=== PATIENT | female | born 1975 | race Caucasian/White ===

== ENCOUNTER 2017-07-31 06:59 | Inpatient (IN) ==
[2017-07-31] MEDS ORDERED: 0.9 % Sodium Chloride 1,000 ML IVC ONE ×2 (07:19→21:24)
--- NOTE | 2017-07-31 07:19 | Emergency Department Note ---
Disposition Clinical Impression: Overdose, Sepsis Disposition: Admitted As Inpatient Condition: Good Referrals: NONE,PCP [Primary Care Provider] - Forms: ED Satisfaction Letter General Adult HPI - General Chief complaint: ED Overdose Stated complaint: overdose Time Seen by Provider: 07/31/17 07:04 Source: patient, EMS Limitations: altered mental status Nursing Notes Reviewed: Yes Vital Signs Reviewed: Yes - History of Present Illness Pain Scale: 3 - Related Data Home Medications Medication Instructions Recorded Confirmed Unable To Obtain [Unable to Obtain] 07/31/17 07/31/17 Allergies Allergy/AdvReac Type Severity Reaction Status Date / Time iodine Allergy Hives Verified 07/07/16 16:08 Past Medical History - Past Medical History Medical history: Reports: asthma, GERD, hepatitis, kidney stones, migraine Surgical history: Reports: , hysterectomy (partial) Psychiatric history: Reports: depression 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 - Social History Smoking Status: Current some day smoker Smokeless Tobacco Status: No Alcohol use: Reports: none Drug use: Reports: marijuana Physical Exam - General Limitations: altered mental status General appearance: alert Course Vital Signs Temperature 101.1 F H 07/31/17 07:03 Pulse Rate 116 07/31/17 07:03 Respiratory Rate 22 07/31/17 07:03 Blood Pressure 107/72 07/31/17 07:03 O2 Sat by Pulse Oximetry 94 07/31/17 07:03 Temperature 99.0 F 07/31/17 12:20 Pulse Rate 92 07/31/17 12:20 Respiratory Rate 20 07/31/17 12:20 Blood Pressure 99/65 07/31/17 12:20 O2 Sat by Pulse Oximetry 95 07/31/17 12:20 Oxygen Delivery Oxygen Delivery Room Air Medical Decision Making - Lab Data Result diagrams: 07/31/17 07:45 07/31/17 07:45 Lab Results 07/31/17 07/31/17 07/31/17 Range/Units 07:45 07:45 07:45 WBC 7.6 (4.3-11.1) K/mcL RBC 4.26 (3.82-4.97) M/mcL Hgb 12.1 (11.5-15.4) g/dL Hct 37.5 (35.3-44.9) % MCV 88.0 (83.0-100.0) fL MCH 28.4 (28.0-33.3) pg MCHC 32.3 (31.6-35.5) g/dL RDW 15.3 H (11.5-14.5) % Plt Count 198 (140-400) K/mcL MPV 10.4 (9.4-12.4) fL Immature Gran % 0.7 (0-4) % Seg Neutrophils % 91.5 % Lymphocytes % 6.9 % Monocytes % 0.5 % Eosinophils % 0.0 % Basophils % 0.4 % Neutrophils # 6.9 (1.6-8.9) K/mcL Lymphocytes # 0.5 L (0.6-4.6) K/mcL Monocytes # 0.0 (0.0-1.3) K/mcL Eosinophils # 0.0 (0.0-0.6) K/mcL Basophils # 0.0 (0.0-0.2) K/mcL PT (9.4-12.1) Seconds INR Sodium 138 (136-145) mEq/L Potassium 3.4 L (3.5-5.1) mEq/L Chloride 102 (98-107) mEq/L Carbon Dioxide 28 (23-29) mEq/L BUN 16 (6-20) mg/dL Creatinine 0.84 (0.60-1.20) mg/dL Est GFR ( Amer) > 60 (> 60) Est GFR (Non-Af Amer) > 60 (> 60) BUN/Creatinine Ratio 19 (6-26) Glucose 80 (70-105) mg/dL Calculated Osmolality 286 (280-300) Lactic Acid (0.5-2.2) mmol/L Calcium 8.9 (8.6-10.3) mg/dL Total Bilirubin 1.1 H (0.3-1.0) mg/dL Direct Bilirubin 0.6 H (0.0-0.2) mg/dL Indirect Bilirubin 0.5 (0.0-1.2) mg/dL AST 43 H (13-39) Units/L ALT 36 (7-52) Units/L Alkaline Phosphatase 102 (34-104) Units/L Ammonia 37 (16-53) mcmol/L B-Natriuretic Peptide (Less than 100) pg/mL Serum Total Protein 6.4 (6.4-8.9) g/dL Albumin 3.0 L (3.5-5.7) g/dL Globulin 3.4 (2.4-3.5) g/dL Albumin/Globulin Ratio 0.9 L (1.1-2.2) Salicylates < 2.5 L (15.0-30.0) mg/dL Acetaminophen < 10 L (10-20) mcg/mL Ethyl Alcohol < 10 (Less than 10) mg/dL 07/31/17 07/31/17 07/31/17 Range/Units 07:45 07:45 08:33 WBC (4.3-11.1) K/mcL RBC (3.82-4.97) M/mcL Hgb (11.5-15.4) g/dL Hct (35.3-44.9) % MCV (83.0-100.0) fL MCH (28.0-33.3) pg MCHC (31.6-35.5) g/dL RDW (11.5-14.5) % Plt Count (140-400) K/mcL MPV (9.4-12.4) fL Immature Gran % (0-4) % Seg Neutrophils % % Lymphocytes % % Monocytes % % Eosinophils % % Basophils % % Neutrophils # (1.6-8.9) K/mcL Lymphocytes # (0.6-4.6) K/mcL Monocytes # (0.0-1.3) K/mcL Eosinophils # (0.0-0.6) K/mcL Basophils # (0.0-0.2) K/mcL PT 11.7 (9.4-12.1) Seconds INR 1.1 Sodium (136-145) mEq/L Potassium (3.5-5.1) mEq/L Chloride (98-107) mEq/L Carbon Dioxide (23-29) mEq/L BUN (6-20) mg/dL Creatinine (0.60-1.20) mg/dL Est GFR ( Amer) (> 60) Est GFR (Non-Af Amer) (> 60) BUN/Creatinine Ratio (6-26) Glucose (70-105) mg/dL Calculated Osmolality (280-300) Lactic Acid 1.5 (0.5-2.2) mmol/L Calcium (8.6-10.3) mg/dL Total Bilirubin (0.3-1.0) mg/dL Direct Bilirubin (0.0-0.2) mg/dL Indirect Bilirubin (0.0-1.2) mg/dL AST (13-39) Units/L ALT (7-52) Units/L Alkaline Phosphatase (34-104) Units/L Ammonia (16-53) mcmol/L B-Natriuretic Peptide 49 (Less than 100) pg/mL Serum Total Protein (6.4-8.9) g/dL Albumin (3.5-5.7) g/dL Globulin (2.4-3.5) g/dL Albumin/Globulin Ratio (1.1-2.2) Salicylates (15.0-30.0) mg/dL Acetaminophen (10-20) mcg/mL Ethyl Alcohol (Less than 10) mg/dL Critical Care Time Critical Care Time: Yes Total Critical Care Time: 35 Attestation: Critical care performed: Time is exclusive of separately billable procedures. Time includes: direct patient care, patient reassessment, coordination of patient care, interpretation of data (laboratory data, radiology data, and respiratory data), review of patient's medical records, medical consultation and documentation of patient care. Procedures included in critical care time: Procedures excluded from critical care time: Attestation Statement - Attestation Attestation: I examined this patient and my medical decision-making was reviewed with the Resident Physician. I agree with the documented findings, disposition and treatment plan as described except to the extent set forth below. Patient to the ED with altered mental status. Patient states that she shot up drugs thinking it was heroin. Complaining of leg swelling. Abdominal swelling. Patient has a history of IV drug use and hepatitis C. On exam she is anxious. Crying. Yelling out. Abdominal distention. 4+ pitting edema in the legs. Plan. Patient afebrile. Septic workup. CT abdomen. CT head. Likely admission. No septic source found. Patient refusing straight catheter and urinated all over herself. Normal white count. Admitted to hospitalist.
--- NOTE | 2017-07-31 07:24 | Emergency Department Note ---
Disposition Clinical Impression: Overdose Qualifiers: Encounter type: initial encounter Injury intent: undetermined intent Qualified Code(s): T50.904A - Poisoning by unspecified drugs, medicaments and biological substances, undetermined, initial encounter Sepsis Qualifiers: Sepsis type: sepsis due to unspecified organism Qualified Code(s): A41.9 - Sepsis, unspecified organism Disposition: Admitted As Inpatient Condition: Good Referrals: NONE,PCP [Primary Care Provider] - Forms: ED Satisfaction Letter General Adult HPI - General Chief complaint: ED Overdose Stated complaint: overdose Time Seen by Provider: 07/31/17 07:04 Source: patient, EMS Limitations: altered mental status Nursing Notes Reviewed: Yes Vital Signs Reviewed: Yes - History of Present Illness HPI Narrative: Patient presents emergency department by EMS after concern for overdose. EMS reports the patient states she crushed up a unknown tablet and injected it. She states that she is recovering addict. Patient states that she is now having second pain in her lower extremities as well as swelling. Patient states that she has pain with trying to walk secondary to the pressure feet. Patient states swelling to both the legs as well as abdomen. Patient has abdominal tenderness that is generalized. Patient has not had vomiting or diarrhea. On exam patient is febrile and tachycardic. Pain Scale: 3 - Related Data Home Medications Medication Instructions Recorded Confirmed Unable To Obtain [Unable to Obtain] 07/31/17 07/31/17 Allergies Allergy/AdvReac Type Severity Reaction Status Date / Time iodine Allergy Hives Verified 07/07/16 16:08 Review of Systems: Somewhat limited secondary to mental status as she is agitated. ROS positive for: Abdominal pain, swelling in the legs, pain in the legs, aggitation. Negative for: Chest pain and shortness of breath. 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 no guarding, rebound, or tenderness to percussion Extremities: Pitting edema to the lower extremities through the calf. +2. Skin: No rash, normal skin tone Neuro: Awake and alert, agitated, moving all extremities. - General Limitations: altered mental status General appearance: alert Course - Reevaluation(s) Reevaluation #1: Patient reevaluated and continues complain of abdominal pain as well as swelling in her lower extremities. Patient came in tachycardic and febrile. She states she has had fevers and chills for the last month. She has a history of septic elbow. History of IV drug use. Concern for sepsis. CT scan with THE findings in the right upper quadrant. Ultrasound ordered. Not septic for acute cholecystitis. Empiric antibiotics given. Patient will be admitted for further observation. - Consultations Consultation #1: Discussed with hospitalist. Patient accepted for admission. Vital Signs Temperature 101.1 F H 07/31/17 07:03 Pulse Rate 116 07/31/17 07:03 Respiratory Rate 22 07/31/17 07:03 Blood Pressure 107/72 07/31/17 07:03 O2 Sat by Pulse Oximetry 94 07/31/17 07:03 Temperature 99.0 F 07/31/17 12:20 Pulse Rate 92 07/31/17 12:20 Respiratory Rate 20 07/31/17 12:20 Blood Pressure 99/65 07/31/17 12:20 O2 Sat by Pulse Oximetry 95 07/31/17 12:20 Oxygen Delivery Oxygen Delivery Room Air Medical Decision Making - Lab Data Result diagrams: 07/31/17 07:45 07/31/17 07:45 Lab Results 07/31/17 07/31/17 07/31/17 Range/Units 07:45 07:45 07:45 WBC 7.6 (4.3-11.1) K/mcL RBC 4.26 (3.82-4.97) M/mcL Hgb 12.1 (11.5-15.4) g/dL Hct 37.5 (35.3-44.9) % MCV 88.0 (83.0-100.0) fL MCH 28.4 (28.0-33.3) pg MCHC 32.3 (31.6-35.5) g/dL RDW 15.3 H (11.5-14.5) % Plt Count 198 (140-400) K/mcL MPV 10.4 (9.4-12.4) fL Immature Gran % 0.7 (0-4) % Seg Neutrophils % 91.5 % Lymphocytes % 6.9 % Monocytes % 0.5 % Eosinophils % 0.0 % Basophils % 0.4 % Neutrophils # 6.9 (1.6-8.9) K/mcL Lymphocytes # 0.5 L (0.6-4.6) K/mcL Monocytes # 0.0 (0.0-1.3) K/mcL Eosinophils # 0.0 (0.0-0.6) K/mcL Basophils # 0.0 (0.0-0.2) K/mcL PT (9.4-12.1) Seconds INR Sodium 138 (136-145) mEq/L Potassium 3.4 L (3.5-5.1) mEq/L Chloride 102 (98-107) mEq/L Carbon Dioxide 28 (23-29) mEq/L BUN 16 (6-20) mg/dL Creatinine 0.84 (0.60-1.20) mg/dL Est GFR ( Amer) > 60 (> 60) Est GFR (Non-Af Amer) > 60 (> 60) BUN/Creatinine Ratio 19 (6-26) Glucose 80 (70-105) mg/dL Calculated Osmolality 286 (280-300) Lactic Acid (0.5-2.2) mmol/L Calcium 8.9 (8.6-10.3) mg/dL Total Bilirubin 1.1 H (0.3-1.0) mg/dL Direct Bilirubin 0.6 H (0.0-0.2) mg/dL Indirect Bilirubin 0.5 (0.0-1.2) mg/dL AST 43 H (13-39) Units/L ALT 36 (7-52) Units/L Alkaline Phosphatase 102 (34-104) Units/L Ammonia 37 (16-53) mcmol/L B-Natriuretic Peptide (Less than 100) pg/mL Serum Total Protein 6.4 (6.4-8.9) g/dL Albumin 3.0 L (3.5-5.7) g/dL Globulin 3.4 (2.4-3.5) g/dL Albumin/Globulin Ratio 0.9 L (1.1-2.2) Salicylates < 2.5 L (15.0-30.0) mg/dL Acetaminophen < 10 L (10-20) mcg/mL Ethyl Alcohol < 10 (Less than 10) mg/dL 07/31/17 07/31/17 07/31/17 Range/Units 07:45 07:45 08:33 WBC (4.3-11.1) K/mcL RBC (3.82-4.97) M/mcL Hgb (11.5-15.4) g/dL Hct (35.3-44.9) % MCV (83.0-100.0) fL MCH (28.0-33.3) pg MCHC (31.6-35.5) g/dL RDW (11.5-14.5) % Plt Count (140-400) K/mcL MPV (9.4-12.4) fL Immature Gran % (0-4) % Seg Neutrophils % % Lymphocytes % % Monocytes % % Eosinophils % % Basophils % % Neutrophils # (1.6-8.9) K/mcL Lymphocytes # (0.6-4.6) K/mcL Monocytes # (0.0-1.3) K/mcL Eosinophils # (0.0-0.6) K/mcL Basophils # (0.0-0.2) K/mcL PT 11.7 (9.4-12.1) Seconds INR 1.1 Sodium (136-145) mEq/L Potassium (3.5-5.1) mEq/L Chloride (98-107) mEq/L Carbon Dioxide (23-29) mEq/L BUN (6-20) mg/dL Creatinine (0.60-1.20) mg/dL Est GFR ( Amer) (> 60) Est GFR (Non-Af Amer) (> 60) BUN/Creatinine Ratio (6-26) Glucose (70-105) mg/dL Calculated Osmolality (280-300) Lactic Acid 1.5 (0.5-2.2) mmol/L Calcium (8.6-10.3) mg/dL Total Bilirubin (0.3-1.0) mg/dL Direct Bilirubin (0.0-0.2) mg/dL Indirect Bilirubin (0.0-1.2) mg/dL AST (13-39) Units/L ALT (7-52) Units/L Alkaline Phosphatase (34-104) Units/L Ammonia (16-53) mcmol/L B-Natriuretic Peptide 49 (Less than 100) pg/mL Serum Total Protein (6.4-8.9) g/dL Albumin (3.5-5.7) g/dL Globulin (2.4-3.5) g/dL Albumin/Globulin Ratio (1.1-2.2) Salicylates (15.0-30.0) mg/dL Acetaminophen (10-20) mcg/mL Ethyl Alcohol (Less than 10) mg/dL
[2017-07-31 08:06] LABS: Basophils % 0.4 %; Hematocrit 37.5 % (35.3-44.9); Hemoglobin 12.1 g/dL (11.5-15.4); Immature Granulocytes % 0.7 % (0-4); Lymphocytes # 0.5 K/mcL (0.6-4.6); Lymphocytes % 6.9 %; Mean Corpuscular HGB Conc 32.3 g/dL (31.6-35.5); Mean Corpuscular Hemoglobin 28.4 pg (28.0-33.3); Mean Platelet Volume 10.4 fL (9.4-12.4); Monocytes % 0.5 %; Neutrophils # 6.9 K/mcL (1.6-8.9); Platelet Count 198 K/mcL (140-400); Red Blood Count 4.26 M/mcL (3.82-4.97); Red Cell Distribution Width 15.3 % (11.5-14.5); Segmented Neutrophils % 91.5 %
[2017-07-31 08:19] LABS: INR 1.1; Prothrombin Time 11.7 Seconds (9.4-12.1)
[2017-07-31 08:22] LABS: Acetaminophen < 10 mcg/mL (10-20); Alanine Aminotransferase 36 Units/L (7-52); Albumin/Globulin Ratio 0.9 (1.1-2.2); Alkaline Phosphatase 102 Units/L (34-104); Aspartate Amino Transferase 43 Units/L (13-39); BUN/Creatinine Ratio 19 (6-26); Bilirubin,Direct 0.6 mg/dL (0.0-0.2); Bilirubin,Indirect 0.5 mg/dL (0.0-1.2); Bilirubin,Total 1.1 mg/dL (0.3-1.0); Blood Urea Nitrogen 16 mg/dL (6-20); Calcium 8.9 mg/dL (8.6-10.3); Carbon Dioxide 28 mEq/L (23-29); Chloride 102 mEq/L (98-107); Ethanol < 10 mg/dL (Less than 10); Globulin 3.4 g/dL (2.4-3.5); Glucose 80 mg/dL (70-105); Osmolality,Calculated 286 (280-300); Potassium 3.4 mEq/L (3.5-5.1); Salicylate < 2.5 mg/dL (15.0-30.0); Sodium 138 mEq/L (136-145); Total Protein 6.4 g/dL (6.4-8.9); eGFR For African Americans > 60 (> 60); eGFR For Non-African Americans > 60 (> 60)
[2017-07-31] MEDS ORDERED: Piperacillin/Tazobactam 3.375 GM in 0.9 % Sodium Chloride Mini Bag 100 ML IVPB ONE (08:46)
--- NOTE | 2017-07-31 12:42 | Internal Med History&Physical ---
Date of Encounter: 08/01/17 Time of Encounter: 12:42 Internal Medicine - H&P: HPI Plans for Post Hospital Care: Transfer Inp Rehab Fac History of present illness: Ms. Pepper is a 42 year old female who as per her is a recovering addict and presents to emergency department by EMS after concern for overdose of unknown tablet that she crushed and injected it. She also C/O abdominal tenderness associated with lower extremities pain as well as swelling. She was evaluated by the Er staff and was found to be febrile and tachycardic. She has a history of septic elbow and she was given that she is febrile and tachycardiac, she was started Empiric antibiotics for a concerns of sepsis. Patient will be admitted for further observation. Past Med Surg Social Fam HX - Past Medical History Medical history: asthma, GERD, hepatitis, kidney stones, migraine Psychiatric history: depression - Past Surgical History Surgical History: , hysterectomy (partial) - Social History Smoking Status: Current some day smoker Smokeless Tobacco Status: No Alcohol use: none Drug use: marijuana - Family History Mother Hx Family Cardiac Disorders: Yes (HTN) Hx Family Respiratory Disorders: No Hx Family Cancer: Yes (Stomach, colon, brain stem) Hx Family GI Disorders: No Hx Family Endocrine Disorder: Yes (DM) Hx Family Neuromuscular Disorders: No Hx Family Neurologic Disorders: No Hx Family HEENT Disorders: No Hx Family Autoimmune Disorders: No Father Hx Family Cardiac Disorders: Yes (HTN) Hx Family Respiratory Disorders: Yes (Asthma) Hx Family Cancer: Yes (Skin) Hx Family GI Disorders: No Hx Family Endocrine Disorder: Yes (DM) Hx Family Neuromuscular Disorders: No Hx Family Neurologic Disorders: No Hx Family HEENT Disorders: No Hx Family Autoimmune Disorders: No Internal Medicine - H&P: Meds Gabapentin [Neurontin] 800 mg PO BID 08/01/17 [History] 3 Allergy/AdvReac Type Severity Reaction Status Date / Time iodine Allergy Hives Verified 07/07/16 16:08 ROS unobtainable: due to mental status All Systems PM: A 10-system review of systems was performed and is negative for pertinent findings except as documented above in the HPI. - Constitutional Vitals: Temp Pulse Resp BP Pulse Ox 99.0 F 92 20 99/65 95 07/31/17 12:20 07/31/17 12:20 07/31/17 12:20 07/31/17 12:20 07/31/17 12:20 General appearance: Present: A&O X 0 - Head Head exam: Present: atraumatic, normocephalic - Eye Eye exam: Present: PERRL, conjuntiva pink, sclera anicteric Pupils: Present: PERRL - Respiratory Respiratory exam: Present: CTAB. Absent: accessory muscle use, rales, rhonchi, wheezes - Cardiovascular Cardiovascular exam: Present: RRR, +S1, +S2. Absent: diastolic murmur, gallop, rubs, systolic murmur - GI/Abdominal GI/Abdominal exam: Present: normal bowel sounds, soft, no peritoneal signs. Absent: distended, tenderness - Extremities Exam Extremities exam: Present: pedal edema, warm, radial pulses palpable and symmetrical. Absent: calf tenderness, cyanotic Internal Med - H&P Results - Labs CBC & Chem 7: 08/01/17 01:32 08/01/17 01:32 - Assessment and plan (1) Overdose Current Visit: Yes Status: Acute Assessment and plan: The patient is recovering drug addict and she is with a history of amphetamine and heroin abuse, urine drug test was obtained and bending, she is hemodynamically stable however she is altered, we will continue monitoring and further management as per drug urine screen test Qualifiers: Encounter type: initial encounter Injury intent: undetermined intent Qualified Code(s): T50.904A - Poisoning by unspecified drugs, medicaments and biological substances, undetermined, initial encounter (2) Sepsis Current Visit: Yes Status: Acute Assessment and plan: There is no significant leukocytic count , however the patient is tachycardic and febrile , she reported fever and chills for the last 1 more month and she has a history of septic elbow. The patient was started on ABs and cultures were obtained and are pending Qualifiers: Sepsis type: sepsis due to unspecified organism Qualified Code(s): A41.9 - Sepsis, unspecified organism (3) Hypokalemia Current Visit: Yes Status: Acute Assessment and plan: Mild, we will repeat K level and replace. (4) DVT prophylaxis Current Visit: No Status: Acute Assessment and plan: We will start the patient on anticoagulation with heparin also we will place SCDs (5) Edema Current Visit: Yes Status: Acute Assessment and plan: Most likely nutritional given low albumin, obtain prealbumin level. The patient has no history of CHF, liver disease or heart disease. - Time Spent With Patient Total time spent is greater than 50% in coordination of care (as documented) at patient's floor/unit and/or counseling patient:
[2017-07-31] MEDS ORDERED: Naloxone 0.4 MG/ML INJ IVP PRN (13:21)
[2017-07-31] MEDS ORDERED: Acetaminophen 325 MG TABLET PO PRN (13:21)
[2017-07-31] MEDS: 0.9 % Sodium Chloride 1,000 ML IVC SCH (16:05)
[2017-07-31 18:10] LABS: Bilirubin,Urine Negative (Negative); Blood,Urine Negative (Negative); Clarity,Urine Clear (Clear); Color,Urine Yellow (Yellow); Glucose,Urine (UA) Normal (Normal); Ketones,Urine Negative (Negative); Leukocyte Esterase,Urine Negative (Negative); Nitrite,Urine Negative (Negative); Protein,Urine Negative (Neg-Trace); Specific Gravity,Urine 1.007 (1.010-1.025); Urobilinogen,Urine Normal (Normal)
[2017-07-31 18:19] LABS: Amphetamine Screen,Urine Negative ng/mL (Cutoff=1000); Barbiturate Screen,Urine Negative ng/mL (Cutoff=200); Benzodiazepines Screen,Urine Negative ng/mL (Cutoff=200); Cannabinoid Screen,Urine Positive ng/mL (Cutoff = 50); Cocaine Screen,Urine Positive ng/mL (Cutoff= 300); Opiate Screen,Urine Positive ng/mL (Cutoff=300); Phencyclidine Screen,Urine Negative ng/mL (Cutoff=25)
[2017-07-31] MEDS: Piperacillin/Tazobactam 3.375 GM in 0.9 % Sodium Chloride Mini Bag 100 ML IVPB SCH (19:41)
[2017-07-31] MEDS: *HR* Heparin 5,000 UNIT/ML VIAL SQ SCH (19:42)
[2017-07-31 20:19] LABS: Hematocrit 36.3 % (35.3-44.9); Mean Corpuscular HGB Conc 33.1 g/dL (31.6-35.5); Mean Corpuscular Hemoglobin 29.3 pg (28.0-33.3); Mean Corpuscular Volume 88.5 fL (83.0-100.0); Mean Platelet Volume 10.3 fL (9.4-12.4); Platelet Count 209 K/mcL (140-400); Red Cell Distribution Width 15.6 % (11.5-14.5)
[2017-07-31 20:24] LABS: INR 1.1
[2017-07-31 20:27] LABS: Activated Partial Thrombo Time 27.5 Seconds (26.0-36.0)
[2017-07-31 20:39] LABS: Alanine Aminotransferase 35 Units/L (7-52); Albumin 2.9 g/dL (3.5-5.7); Albumin/Globulin Ratio 0.9 (1.1-2.2); Alkaline Phosphatase 64 Units/L (34-104); Aspartate Amino Transferase 39 Units/L (13-39); BUN/Creatinine Ratio 15 (6-26); Bilirubin,Direct 0.2 mg/dL (0.0-0.2); Bilirubin,Indirect 0.3 mg/dL (0.0-1.2); Bilirubin,Total 0.5 mg/dL (0.3-1.0); Blood Urea Nitrogen 14 mg/dL (6-20); Calcium 8.4 mg/dL (8.6-10.3); Carbon Dioxide 24 mEq/L (23-29); Chloride 107 mEq/L (98-107); Globulin 3.4 g/dL (2.4-3.5); Glucose 174 mg/dL (70-105); Osmolality,Calculated 295 (280-300); Potassium 3.3 mEq/L (3.5-5.1); Sodium 140 mEq/L (136-145); Total Protein 6.3 g/dL (6.4-8.9); eGFR For African Americans > 60 (> 60); eGFR For Non-African Americans > 60 (> 60)
[2017-07-31 20:41] LABS: Lymphocytes # 2.6 K/mcL (0.6-4.6); Neutrophils # 23.1 K/mcL (1.6-8.9); Platelet Estimate Normal (Normal)
[2017-08-01 01:47] LABS: Basophils # 0.1 K/mcL (0.0-0.2); Basophils % 0.3 %; Hematocrit 31.7 % (35.3-44.9); Hemoglobin 10.2 g/dL (11.5-15.4); Immature Granulocytes % 0.5 % (0-4); Lymphocytes # 2.5 K/mcL (0.6-4.6); Mean Corpuscular HGB Conc 32.2 g/dL (31.6-35.5); Mean Corpuscular Hemoglobin 28.3 pg (28.0-33.3); Mean Corpuscular Volume 87.8 fL (83.0-100.0); Mean Platelet Volume 10.4 fL (9.4-12.4); Monocytes # 1.2 K/mcL (0.0-1.3); Monocytes % 5.5 %; Neutrophils # 18.4 K/mcL (1.6-8.9); Platelet Count 196 K/mcL (140-400); Red Blood Count 3.61 M/mcL (3.82-4.97); Red Cell Distribution Width 15.8 % (11.5-14.5); Segmented Neutrophils % 82.7 %
[2017-08-01 01:51] LABS: INR 1.1; Prothrombin Time 12.1 Seconds (9.4-12.1)
[2017-08-01 02:06] LABS: Alanine Aminotransferase 28 Units/L (7-52); Albumin 2.5 g/dL (3.5-5.7); Albumin/Globulin Ratio 0.8 (1.1-2.2); Alkaline Phosphatase 59 Units/L (34-104); Aspartate Amino Transferase 30 Units/L (13-39); BUN/Creatinine Ratio 19 (6-26); Bilirubin,Total 0.4 mg/dL (0.3-1.0); Blood Urea Nitrogen 15 mg/dL (6-20); Calcium 7.9 mg/dL (8.6-10.3); Carbon Dioxide 26 mEq/L (23-29); Chloride 111 mEq/L (98-107); Chol/HDL Ratio 2.4 (0-4.9); Cholesterol 91 mg/dL (< 200); Glucose 136 mg/dL (70-105); HDL Cholesterol 38 mg/dL (40-59); LDL Cholesterol,Calculated 42 mg/dL (0-99); Magnesium 1.7 mg/dL (1.6-2.6); Osmolality,Calculated 293 (280-300); Phosphorous 2.5 mg/dL (2.7-4.5); Potassium 3.7 mEq/L (3.5-5.1); Sodium 140 mEq/L (136-145); Total Protein 5.5 g/dL (6.4-8.9); Triglycerides 55 mg/dL (< 150); eGFR For African Americans > 60 (> 60); eGFR For Non-African Americans > 60 (> 60)
[2017-08-01] MEDS: Piperacillin/Tazobactam 3.375 GM in 0.9 % Sodium Chloride Mini Bag 100 ML IVPB SCH ×2 (03:38→10:29)
[2017-08-01] MEDS: *HR* Heparin 5,000 UNIT/ML VIAL SQ SCH (06:10)
[2017-08-01] MEDS ORDERED: *HR* LORazepam 2 MG/ML VIAL IVP PRN (10:12)
[2017-08-01] MEDS: 0.9 % Sodium Chloride 1,000 ML IVC SCH (10:28)
--- NOTE | 2017-08-01 11:36 | Internal Med Progress Note ---
Date of Encounter: 08/01/17 Time of Encounter: 11:34 - Assessment and plan (1) Overdose Current Visit: Yes Status: Acute Assessment and plan: Overdose of suspected crack cocaine Patient unclear of the drug she injected; reports that he did not feel the same as prior injections which is why she came to the hospital Patient is a recovering addict and has had a recent 5-6 week stay at the [place] [facility] History of amphetamine, heroin, opiate and marijuana abuse UDS positive for opiates, cocaine and marijuana Patient reports that this was not intentional, denies any suicidal/homicidal ideation, denies any auditory/visual hallucinations, no tremors present, patient alert and participating in exam. She does appear to be mildly anxious and is agitated. Multiple occasions she has threatened to sign out AGAINST MEDICAL ADVICE. She was noted to have multiple people enter and exit her room. She has been informed that she would need to remain with her door open so that we can closely monitor her situation given her reason for admission. Continue to closely monitor for changes in mental status Remain on telemetry Closely monitor vital status Lorazepam 0.5 mg IVP when necessary for anxiety Continue antiemetics CBC and BMP in the morning WBC continues to improve and patient condition continues to stabilize consider discontinuing antibiotics in the a.m. also, as long as blood cultures remain with no growth Qualifiers: Encounter type: initial encounter Injury intent: undetermined intent Qualified Code(s): T50.904A - Poisoning by unspecified drugs, medicaments and biological substances, undetermined, initial encounter (2) Sepsis Current Visit: Yes Status: Acute Assessment and plan: Patient presented with leukocytosis 25.7, WBC 22.2 today. Concern for sepsis however no obvious source. Leukocytosis could be reactionary in the setting of IV drug abuse with IVDU of crack cocaine. Lactic acid 5.0 on arrival, 1.7 today , afebrile, heart rate 82, respiratory rate stable at 16, blood pressure stable at 113/65 and 96% on room air. Unclear whether or not this is sepsis at this time, patient has history of septic elbow. Continue empiric antibiotic therapy-vancomycin and Zosyn Blood cultures preliminary no growth-continue to follow Qualifiers: Sepsis type: sepsis due to unspecified organism Qualified Code(s): A41.9 - Sepsis, unspecified organism (3) Hypokalemia Current Visit: Yes Status: Acute Assessment and plan: Resolved, check serum potassium in the morning (4) Edema Current Visit: Yes Status: Resolved Assessment and plan: Resolved, continue Sid stockings Qualifiers: Qualified Code(s): R60.9 - Edema, unspecified (5) DVT prophylaxis Current Visit: Yes Status: Acute Assessment and plan: We will start the patient on anticoagulation with heparin also we will place SCDs - Time Spent With Patient Total time spent is greater than 50% in coordination of care (as documented) at patient's floor/unit and/or counseling patient: Greater than 35 minutes - Subjective Interval history: Ms. Pepper is a 42 year old female who as per her is a recovering addict and presents to emergency department by EMS after concern for overdose of unknown tablet that she crushed and injected it. She also C/O abdominal tenderness associated with lower extremities pain as well as swelling. Patient reporting to me that she did not overdose but was concerned because she injected an unknown substance; this made her feel anxious so she called the squad to come to the hospital. Patient denies any suicidal/homicidal ideation, denies any auditory or visual hallucinations, denies any tremors. Continues to report mild abdominal tenderness and lower extremity pain, reports swelling is improving. - Constitutional Vitals: Temp Pulse Resp BP Pulse Ox 98.4 F 82 16 113/65 96 08/01/17 07:33 08/01/17 07:33 08/01/17 07:33 08/01/17 07:33 08/01/17 07:33 General appearance: Present: A&O X 3, no acute distress, answers questions appropriately - Head Head exam: Present: atraumatic, normocephalic - Eye Eye exam: Present: EOMI, PERRL, conjuntiva pink, sclera anicteric Pupils: Present: PERRL - Neck Neck exam general surgery: Present: supple, trachea midline. Absent: lymphadenopathy - Respiratory Respiratory exam: Present: CTAB. Absent: accessory muscle use, chest wall tenderness, decreased breath sounds, prolonged expiratory phase, rales, respiratory distress, rhonchi, wheezes, tachypnea - Cardiovascular Cardiovascular exam: Present: RRR, +S1, +S2. Absent: diastolic murmur, gallop, rubs, systolic murmur - GI/Abdominal GI/Abdominal exam: Present: normal bowel sounds, soft, no peritoneal signs. Absent: distended, tenderness - Extremities Exam Extremities exam: Present: normal capillary refill, normal inspection, warm, radial pulses palpable and symmetrical. Absent: calf tenderness, cyanotic, joint swelling, mottling, pedal edema, tenderness - Back Exam Back exam: Absent: CVA tenderness (L), CVA tenderness (R) - Neurological Exam Neurological exam: Present: alert, CN II-XII intact, oriented X3, no focal deficits. Absent: pronater drift, facial droop, speech deficit - Psychiatric Psychiatric exam: Present: agitated, anxious. Absent: depressed, homicidal ideation, manic, suicidal ideation - Skin Skin exam: Present: dry, intact Internal Medicine: Result - Labs CBC & Chem 7: 08/01/17 01:32 08/01/17 01:32 Labs: Short CBC 07/31/17 08/01/17 Range/Units 20:06 01:32 WBC 25.7 H D 22.2 H (4.3-11.1) K/mcL Hgb 12.0 10.2 L D (11.5-15.4) g/dL Hct 36.3 31.7 L (35.3-44.9) % Plt Count 209 196 (140-400) K/mcL Neutrophils # 23.1 H 18.4 H (1.6-8.9) K/mcL BMP 07/31/17 08/01/17 20:06 01:32 Sodium 140 140 Potassium 3.3 L 3.7 Chloride 107 111 H Carbon Dioxide 24 26 BUN 14 15 Creatinine 0.93 0.81 Glucose 174 H 136 H Calcium 8.4 L 7.9 L Cardiac Enzymes 07/31/17 08/01/17 Range/Units 20:06 01:32 Troponin I < 0.03 < 0.03 (< 0.04) ng/mL Liver Function 07/31/17 08/01/17 Range/Units 20:06 01:32 Total Bilirubin 0.5 0.4 (0.3-1.0) mg/dL Direct Bilirubin 0.2 (0.0-0.2) mg/dL AST 39 30 (13-39) Units/L ALT 35 28 (7-52) Units/L Alkaline Phosphatase 64 59 (34-104) Units/L Albumin 2.9 L 2.5 L (3.5-5.7) g/dL Urine 07/31/17 Range/Units 17:34 Urine Color Yellow (Yellow) Urine Clarity Clear (Clear) Urine pH 7.0 (5.0-8.0) pH Units Ur Specific Goldsmith 1.007 L (1.010-1.025) Urine Protein Negative (Neg-Trace) mg/dL Urine Glucose (UA) Normal (Normal) mg/dL - ABG Interpretation ABG results: PT/INR, D-dimer PT 12.1 Seconds (9.4-12.1) 08/01/17 01:32 - Impressions Impressions Chest X-Ray 07/31/17 07:16 IMPRESSION: No acute cardiopulmonary disease. D/ / 07/31/2017 08:28:55 Cosmo Fatima MD [facility] [place] Interpre[place] Provider: Cosmo Fatima MD - VTE Documentation of Mechanical Device: Graduated compression elastic hosiery Consult Discharge Plan - Plan Referrals: NONE,PCP [Primary Care Provider] -
[2017-08-01 11:42] VITALS: BP 110/66
--- NOTE | 2017-08-01 11:52 | Event Note ---
Date of Encounter: 08/01/17 Time of Encounter: 11:50 I was called to the bedside at the request of the patient reported that she is not sure she would like to stay for medical treatment any longer. She was informed that with recent drug overdose, drug abuse history and potential sepsis would not be safe for her to go home at this time. She was informed that she could benefit from further treatment and/or discharged to an outpatient treatment facility to help with her drug abuse. Additionally, she was informed that would be vital to continue to receive IV antibiotic therapy due to likely sepsis. She was informed that she was not medically stable for discharge and I would not recommend or complete a discharge. The patient reports that she would like to leave AGAINST MEDICAL ADVICE. She was informed on multiple occasions that she has the right to leave AGAINST MEDICAL ADVICE as she has no suicidal or homicidal ideation or intent for self-harm. She was informed that leaving AGAINST MEDICAL ADVICE in her current condition with sepsis and drug abuse history could result in . The patient has agreed to stay at this time but is still considering leaving AGAINST MEDICAL ADVICE. She continues to be agitated. She is receiving anxiolytics per IV push. We are vigilantly monitoring for signs and symptoms of withdrawal and treating withdrawal.
--- NOTE | 2017-08-01 16:24 | Event Note ---
Date of Encounter: 08/01/17 Time of Encounter: 15:00 Patient with overdose of crack cocaine and concern for sepsis with leukocytosis. Was being treated with empiric broad-spectrum antibiotics for concern for sepsis. No suicidal or homicidal ideation. Accidental overdose of crack cocaine via IV injection. Patient was becoming very agitated and anxious and requesting to leave. Patient was educated that we would not be within her best interest to leave as she likely has a septic infection. It was explained to her that she would need broad-spectrum antibiotics in order to resolve the infection and that should she leave and not receive antibiotic therapy she could decline of health and/or . Patient left AGAINST MEDICAL ADVICE after education. Patient confirmed that she understood risks and decided to leave AGAINST MEDICAL ADVICE anyway.
--- NOTE | 2017-08-02 14:22 | Electrocardiograph Report ---
[address] [address] Test Date: 2017-07-31 Pat Name: Shawnee Pepper Department: 103 Room: 3B33 Gender: F Store Receiving Specialist: : [id number] Requested By: Susanne See Order Number: [id number] Reading MD: Sherly Duque Measurements Intervals [place]cl[place] Rate: 111 P: 55 RI: 112 QRS: 61 QRSD: 80 T: 67 QT: 327 QTc: 392 Interpretive Statements SINUS TACHYCARDIA WITH SHORT RI INTERVAL POSSIBLE LEFT ATRIAL ENLARGEMENT [-0.1mV P WAVE IN V1/V2] MINIMAL ST DEPRESSION [0.025+ mV ST DEPRESSION] Electronically Signed On 08-02-2017 14:20:37 EDT by Sherly Duque
== END 2017-08-01 15:00 | disposition left against medical advice (07) | DRG 720 ==
LOC: 3BNU 06:59 → EMEROO 06:59 → 3BNU 12:43
PROVIDERS: ADMIT General Practice; ATTEND General Practice

== ENCOUNTER 2019-01-29 11:45 | Observation (INO) ==
[2019-01-29] MEDS ORDERED: *HR* LORazepam 2 MG/ML VIAL IVP ONE (11:54)
[2019-01-29] MEDS ORDERED: *HR* Midazolam HCl 2 MG/2 ML VIAL IVP ONE (12:18)
[2019-01-29] MEDS ORDERED: *HR* Ketamine 500 MG/5 ML MDV IVP ONE (12:30)
[2019-01-29] MEDS ORDERED: Ketamine *HR* 500 MG/10 ML MDV IVP ONE (12:32)
[2019-01-29] MEDS: 0.9 % Sodium Chloride 1,000 ML IVC SCH ×5 (12:53→18:37)
[2019-01-29 13:14] LABS: Bilirubin,Urine Negative (Negative); Blood,Urine Negative (Negative); Clarity,Urine Clear (Clear); Color,Urine Yellow (Yellow); Glucose,Urine (UA) Normal (Normal); Ketones,Urine Negative (Negative); Leukocyte Esterase,Urine Negative (Negative); Nitrite,Urine Negative (Negative); Protein,Urine Negative (Neg-Trace); Specific Gravity,Urine 1.011 (1.010-1.025); Urobilinogen,Urine Normal (Normal)
[2019-01-29 13:17] LABS: Basophils % 0.2 %; Hematocrit 39.2 % (35.3-44.9); Hemoglobin 12.3 g/dL (11.5-15.4); Immature Granulocytes % 0.6 % (0-4); Lymphocytes # 1.2 K/mcL (0.6-4.6); Lymphocytes % 17.9 %; Mean Corpuscular HGB Conc 31.4 g/dL (31.6-35.5); Mean Corpuscular Hemoglobin 27.6 pg (28.0-33.3); Mean Corpuscular Volume 87.9 fL (83.0-100.0); Mean Platelet Volume 9.8 fL (9.4-12.4); Monocytes # 0.1 K/mcL (0.0-1.3); Monocytes % 0.8 %; Neutrophils # 5.4 K/mcL (1.6-8.9); Platelet Count 309 K/mcL (140-400); Red Blood Count 4.46 M/mcL (3.82-4.97); Red Cell Distribution Width 16.2 % (11.5-14.5); Segmented Neutrophils % 80.5 %; White Blood Count 6.7 K/mcL (4.3-11.1)
[2019-01-29 13:36] LABS: BUN/Creatinine Ratio 33 (6-26); Blood Urea Nitrogen 28 mg/dL (6-20); Calcium 8.7 mg/dL (8.6-10.3); Carbon Dioxide 25 mEq/L (23-29); Chloride 101 mEq/L (98-107); Glucose 87 mg/dL (70-105); Osmolality,Calculated 287 (280-300); Potassium 3.6 mEq/L (3.5-5.1); Sodium 136 mEq/L (136-145); eGFR For African Americans > 60 (> 60); eGFR For Non-African Americans > 60 (> 60)
[2019-01-29 13:57] LABS: Platelet Estimate Normal (Normal)
[2019-01-29] MEDS ORDERED: *HR* FentaNYL (PF) 100 MCG/2 ML VIAL IVP ONE (14:45)
[2019-01-29] MEDS ORDERED: Ketorolac 15 MG/ML VIAL IVP ONE (14:45)
[2019-01-29] MEDS ORDERED: Isovue-370 500 ML BOTTLE IVP ONE (14:57)
[2019-01-29] MEDS ORDERED: Ondansetron 4 MG/2 ML VIAL IVP PRN (16:09)
[2019-01-29] MEDS ORDERED: Naloxone 0.4 MG/ML INJ IVP PRN (16:09)
[2019-01-29] MEDS ORDERED: 0.9 % Sodium Chloride 1,000 ML IVC ONE (16:09)
[2019-01-29] MEDS ORDERED: Ipratropium/Albuterol Neb 3 ML IH PRN (16:14)
[2019-01-29] MEDS ORDERED: *HR* Metoprolol 5 MG/5 ML VIAL IVP PRN (16:14)
[2019-01-29] MEDS ORDERED: traMADol 50 MG TABLET PO PRN (16:23)
[2019-01-29] MEDS ORDERED: Piperacillin/Tazobactam 3.375 GM in Water for inj. (sterile) 20 ML IVP ONE (16:23)
[2019-01-29] MEDS ORDERED: Acetaminophen 325 MG TABLET PO PRN (16:25)
[2019-01-29 17:24] LABS: Amphetamine Screen,Urine Negative ng/mL (Cutoff=1000); Barbiturate Screen,Urine Negative ng/mL (Cutoff=200); Benzodiazepines Screen,Urine Negative ng/mL (Cutoff=200); Cannabinoid Screen,Urine Positive ng/mL (Cutoff = 50); Cocaine Screen,Urine Positive ng/mL (Cutoff= 300); Opiate Screen,Urine Positive ng/mL (Cutoff=300); Phencyclidine Screen,Urine Negative ng/mL (Cutoff=25)
[2019-01-29] MEDS: Piperacillin/Tazobactam 3.375 GM in 0.9 % Sodium Chloride Mini Bag 100 ML IVPB SCH (18:36)
[2019-01-29] MEDS: predniSONE 20 MG TABLET PO SCH (18:39)
[2019-01-29] MEDS: *HR* Heparin 5,000 UNIT/ML VIAL SQ SCH (18:39)
[2019-01-29] MEDS: Ipratropium/Albuterol Neb 3 ML IH SCH ×3 (19:42→22:20)
[2019-01-30] MEDS: Piperacillin/Tazobactam 3.375 GM in 0.9 % Sodium Chloride Mini Bag 100 ML IVPB SCH (01:27)
[2019-01-30] MEDS: Ipratropium/Albuterol Neb 3 ML IH SCH ×3 (03:53→11:38)
[2019-01-30 05:19] LABS: Hematocrit 35.7 % (35.3-44.9); Lymphocytes % 5.8 %; Mean Corpuscular Hemoglobin 27.9 pg (28.0-33.3); Mean Platelet Volume 10.7 fL (9.4-12.4)
[2019-01-30 05:20] LABS: Basophils # 0.1 K/mcL (0.0-0.2); Basophils % 0.2 %; Hemoglobin 11.7 g/dL (11.5-15.4); Immature Granulocytes % 2.5 % (0-4); Lymphocytes # 1.8 K/mcL (0.6-4.6); Mean Corpuscular HGB Conc 32.8 g/dL (31.6-35.5); Monocytes # 0.5 K/mcL (0.0-1.3); Monocytes % 1.5 %; Neutrophils # 27.2 K/mcL (1.6-8.9); Platelet Count 293 K/mcL (140-400); Red Cell Distribution Width 16.9 % (11.5-14.5)
[2019-01-30 05:39] LABS: BUN/Creatinine Ratio 24 (6-26); Blood Urea Nitrogen 21 mg/dL (6-20); Calcium 8.8 mg/dL (8.6-10.3); Carbon Dioxide 22 mEq/L (23-29); Chloride 109 mEq/L (98-107); Glucose 167 mg/dL (70-105); Osmolality,Calculated 297 (280-300); Potassium 4.3 mEq/L (3.5-5.1); Sodium 140 mEq/L (136-145); eGFR For African Americans > 60 (> 60); eGFR For Non-African Americans > 60 (> 60)
[2019-01-30] MEDS: *HR* Heparin 5,000 UNIT/ML VIAL SQ SCH (05:56)
[2019-01-30 06:06] LABS: White Blood Count 30.2 K/mcL (4.3-11.1)
[2019-01-30] MEDS: predniSONE 20 MG TABLET PO SCH (07:52)
[2019-01-30] MEDS ORDERED: 0.9 % Sodium Chloride 1,000 ML IVC SCH (07:56)
[2019-01-30 08:32] LABS: Red Cell Distribution Width 16.7 % (11.5-14.5)
[2019-01-30 08:34] LABS: Hematocrit 34.9 % (35.3-44.9); Hemoglobin 11.1 g/dL (11.5-15.4); Mean Corpuscular HGB Conc 31.8 g/dL (31.6-35.5); Mean Corpuscular Hemoglobin 27.5 pg (28.0-33.3); Mean Corpuscular Volume 86.6 fL (83.0-100.0); Mean Platelet Volume 9.9 fL (9.4-12.4); Platelet Count 262 K/mcL (140-400); Red Blood Count 4.03 M/mcL (3.82-4.97); White Blood Count 29.2 K/mcL (4.3-11.1)
[2019-01-30 08:49] LABS: Albumin/Globulin Ratio 0.8 (1.1-2.2); Bilirubin,Direct 0.2 mg/dL (0.0-0.2); Bilirubin,Indirect 0.2 mg/dL (0.0-1.0); Bilirubin,Total 0.4 mg/dL (0.3-1.0); Globulin 3.7 g/dL (2.4-3.5); Total Protein 6.7 g/dL (6.4-8.9)
[2019-01-30 09:16] LABS: Lymphocytes # 2.9 K/mcL (0.6-4.6); Monocytes # 0.6 K/mcL (0.0-1.3); Neutrophils # 24.5 K/mcL (1.6-8.9); Platelet Clumps Few (Not Present); Platelet Estimate Normal (Normal); Toxic Granulation Present (Not Present)
[2019-01-30] MEDS: 0.9 % Sodium Chloride 1,000 ML IVC SCH (09:23)
[2019-01-30] MEDS ORDERED: Piperacillin/Tazobactam 3.375 GM in 0.9 % Sodium Chloride Mini Bag 100 ML IVPB SCH (10:00)
[2019-01-30] MEDS ORDERED: *HR* FentaNYL PATCH 12 MCG PATCH TD SCH (11:30)
[2019-01-30 12:52] VITALS: BP 96/55
[2019-01-30] MEDS ORDERED: Aminoglycoside Consult 1 EACH MC ONE (14:59)
[2019-01-30] MEDS ORDERED: Gabapentin 400 MG CAPSULE PO SCH (15:00)
== END 2019-01-30 15:00 | disposition left against medical advice (07) ==
LOC: EMEROOARM 11:45 → 2ANU 11:45
PROVIDERS: ADMIT Internal Medicine; ATTEND Internal Medicine

== ENCOUNTER 2019-05-31 09:42 | Observation (INO) ==
[2019-05-31] MEDS ORDERED: 0.9 % Sodium Chloride 1,000 ML IVC ONE (09:48)
[2019-05-31] MEDS ORDERED: Piperacillin/Tazobactam 3.375 GM in Water for inj. (sterile) 20 ML IVP ONE (09:50)
[2019-05-31] MEDS ORDERED: Isovue-370 500 ML BOTTLE IVP ONE (09:53)
[2019-05-31 10:25] LABS: Hematocrit 39.9 % (35.3-44.9); Hemoglobin 12.2 g/dL (11.5-15.4); Lymphocytes # 0.6 K/mcL (0.6-4.6); Mean Corpuscular HGB Conc 30.6 g/dL (31.6-35.5); Mean Corpuscular Hemoglobin 25.8 pg (28.0-33.3); Mean Corpuscular Volume 84.5 fL (83.0-100.0); Mean Platelet Volume 10.2 fL (9.4-12.4); Platelet Count 210 K/mcL (140-400); Red Blood Count 4.72 M/mcL (3.82-4.97); Red Cell Distribution Width 16.5 % (11.5-14.5); White Blood Count 2.6 K/mcL (4.3-11.1)
[2019-05-31] MEDS ORDERED: Ondansetron 4 MG/2 ML VIAL IVP ONE (10:29)
[2019-05-31] MEDS ORDERED: 0.9 % Sodium Chloride 500 ML IVC ONE (10:36)
[2019-05-31] MEDS: 0.9 % Sodium Chloride 1,000 ML IVC ONE ×2 (10:46→13:13)
[2019-05-31 10:50] LABS: Eosinophils # 0.1 K/mcL (0.0-0.6); Monocytes # 0.2 K/mcL (0.0-1.3); Neutrophils # 1.8 K/mcL (1.6-8.9); Platelet Estimate Normal (Normal)
[2019-05-31 11:19] LABS: Bilirubin,Urine Negative (Negative); Blood,Urine Negative (Negative); Clarity,Urine Clear (Clear); Color,Urine Yellow (Yellow); Glucose,Urine (UA) Normal (Normal); Ketones,Urine Negative (Negative); Leukocyte Esterase,Urine Negative (Negative); Nitrite,Urine Negative (Negative); Protein,Urine Negative (Neg-Trace); Urobilinogen,Urine Normal (Normal)
[2019-05-31 11:41] LABS: Amphetamine Screen,Urine Positive ng/mL (Cutoff=1000); Barbiturate Screen,Urine Negative ng/mL (Cutoff=200); Benzodiazepines Screen,Urine Negative ng/mL (Cutoff=200); Cannabinoid Screen,Urine Positive ng/mL (Cutoff = 50); Cocaine Screen,Urine Positive ng/mL (Cutoff= 300); Opiate Screen,Urine Negative ng/mL (Cutoff=300); Phencyclidine Screen,Urine Negative ng/mL (Cutoff=25)
[2019-05-31 12:00] LABS: Acetaminophen < 10 mcg/mL (10-20); Alanine Aminotransferase 63 Units/L (7-52); Albumin 3.5 g/dL (3.5-5.7); Albumin/Globulin Ratio 0.9 (1.1-2.2); Alkaline Phosphatase 139 Units/L (34-104); Aspartate Amino Transferase 85 Units/L (13-39); BUN/Creatinine Ratio 20 (6-26); Bilirubin,Direct 0.5 mg/dL (0.0-0.2); Bilirubin,Indirect 0.4 mg/dL (0.0-1.0); Bilirubin,Total 0.9 mg/dL (0.3-1.0); Blood Urea Nitrogen 22 mg/dL (6-20); Carbon Dioxide 25 mEq/L (23-29); Chloride 105 mEq/L (98-107); Creatine Kinase 146 Units/L (30-223); Ethanol < 10 mg/dL (Less than 10); Globulin 4.1 g/dL (2.4-3.5); Glucose 26 mg/dL (70-105); Osmolality,Calculated 285 (280-300); Potassium 3.4 mEq/L (3.5-5.1); Salicylate < 2.5 mg/dL (15.0-30.0); Sodium 138 mEq/L (136-145); Total Protein 7.6 g/dL (6.4-8.9); Troponin I < 0.03 ng/mL (< 0.04); eGFR For African Americans > 60 (> 60); eGFR For Non-African Americans 53 (> 60)
[2019-05-31] MEDS ORDERED: *HR* Dextrose 50 % in Water (Syg) 50 ML SYRINGE IVP ONE (12:00)
[2019-05-31 12:02] LABS: Thyroid Stimulating Hormone 0.915 mcIU/mL (0.340-5.600)
[2019-05-31] MEDS ORDERED: *HR* Dextrose 50 % in Water (Syg) 50 ML SYRINGE ONE (12:03)
[2019-05-31] MEDS ORDERED: Naloxone 0.4 MG/ML INJ IVP PRN (13:17)
[2019-05-31] MEDS ORDERED: Ondansetron 4 MG/2 ML VIAL IVP PRN (13:17)
[2019-05-31] MEDS ORDERED: D5% in 0.9% NACL 1,000 ML IVC SCH (13:30)
[2019-05-31] MEDS ORDERED: Piperacillin/Tazobactam 3.375 GM in 0.9 % Sodium Chloride Mini Bag 100 ML IVPB SCH (14:30)
[2019-05-31 15:01] VITALS: BP 92/63
[2019-05-31] MEDS ORDERED: Aminoglycoside Consult 1 EACH MC ONE (16:43)
[2019-05-31] MEDS ORDERED: Perflutren Lipid Microsphere 1.3 ML in 0.9 % Sodium Chloride 8.7 ML IVP ONE (17:12)
[2019-05-31] MEDS ORDERED: *HR* Heparin 5,000 UNIT/ML VIAL SQ SCH (18:00)
[2019-06-02 03:39] LABS: Acinetobacter baumannii by PCR Not Detected (Not Detect); Candida albicans by PCR Not Detected (Not Detect); Candida glabrata by PCR Not Detected (Not Detect); Candida krusei by PCR Not Detected (Not Detect); Candida parapsilosis by PCR DETECTED (Not Detect); Candida tropicalis by PCR Not Detected (Not Detect); Enterobacter cloacae Cmplx PCR Not Detected (Not Detect); Enterobacteriaceae by PCR Not Detected (Not Detect); Enterococcus by PCR Not Detected (Not Detect); Escherichia coli by PCR Not Detected (Not Detect); Klebsiella oxytoca by PCR Not Detected (Not Detect); Klebsiella pneumoniae by PCR Not Detected (Not Detect); Proteus by PCR Not Detected (Not Detect); Pseudomonas aeruginosa by PCR Not Detected (Not Detect); Serratia marcescens by PCR Not Detected (Not Detect); Staphylococcus aureus by PCR Not Detected (Not Detect); Staphylococcus by PCR Not Detected (Not Detect); Streptococcus agalactiae(B)PCR Not Detected (Not Detect); Streptococcus by PCR Not Detected (Not Detect); Streptococcus pneumoniae PCR Not Detected (Not Detect); Streptococcus pyogenes (A) PCR Not Detected (Not Detect); blaKPC Carbapenem-Resist Gene Not Detected (Not Detect); mecA Methicillin-Resist Gene Not Detected (Not Detect); vanA/B Vancomycin-Resist Genes Not Detected (Not Detect)
== END 2019-05-31 16:44 | disposition home or self-care (01) ==
LOC: 3BNU 09:42 → EMEROOARM 09:42 → 3BNU 12:31
PROVIDERS: ADMIT Internal Medicine; ATTEND Internal Medicine

== ENCOUNTER 2019-06-04 19:08 | Observation (INO) ==
[2019-06-04] MEDS ORDERED: Isovue-370 500 ML BOTTLE IVP ONE (20:24)
[2019-06-04] MEDS ORDERED: 0.9 % Sodium Chloride 1,000 ML IVC ONE (20:27)
[2019-06-04 20:39] LABS: Basophils % 0.4 %; Hematocrit 41.5 % (35.3-44.9); Hemoglobin 12.6 g/dL (11.5-15.4); Immature Granulocytes % 0.3 % (0-4); Lymphocytes # 3.3 K/mcL (0.6-4.6); Lymphocytes % 45.9 %; Mean Corpuscular HGB Conc 30.4 g/dL (31.6-35.5); Mean Corpuscular Hemoglobin 26.2 pg (28.0-33.3); Mean Corpuscular Volume 86.3 fL (83.0-100.0); Mean Platelet Volume 10.1 fL (9.4-12.4); Monocytes # 0.5 K/mcL (0.0-1.3); Monocytes % 7.3 %; Neutrophils # 3.3 K/mcL (1.6-8.9); Platelet Count 273 K/mcL (140-400); Red Blood Count 4.81 M/mcL (3.82-4.97); Red Cell Distribution Width 17.1 % (11.5-14.5); Segmented Neutrophils % 46.1 %
[2019-06-04 20:42] LABS: White Blood Count 7.2 K/mcL (4.3-11.1)
[2019-06-04] MEDS ORDERED: Micafungin 100 MG in 0.9 % Sodium Chloride Mini Bag 100 ML IVPB ONE (20:45)
[2019-06-04 20:56] LABS: Reactive Lymphocytes Present (Not Present)
[2019-06-04 20:59] LABS: Alanine Aminotransferase 41 Units/L (7-52); Albumin 3.4 g/dL (3.5-5.7); Albumin/Globulin Ratio 0.8 (1.1-2.2); Alkaline Phosphatase 86 Units/L (34-104); Aspartate Amino Transferase 42 Units/L (13-39); BUN/Creatinine Ratio 9 (6-26); Bilirubin,Direct 0.1 mg/dL (0.0-0.2); Bilirubin,Indirect 0.1 mg/dL (0.0-1.0); Bilirubin,Total 0.2 mg/dL (0.3-1.0); Blood Urea Nitrogen 7 mg/dL (6-20); Calcium 9.1 mg/dL (8.6-10.3); Carbon Dioxide 32 mEq/L (23-29); Chloride 100 mEq/L (98-107); Globulin 4.2 g/dL (2.4-3.5); Glucose 111 mg/dL (70-105); Osmolality,Calculated 283 (280-300); Potassium 3.9 mEq/L (3.5-5.1); Sodium 137 mEq/L (136-145); Total Protein 7.6 g/dL (6.4-8.9); eGFR For African Americans > 60 (> 60); eGFR For Non-African Americans > 60 (> 60)
[2019-06-04 21:03] LABS: Bilirubin,Urine Negative (Negative); Blood,Urine Negative (Negative); Clarity,Urine Clear (Clear); Color,Urine Yellow (Yellow); Glucose,Urine (UA) Normal (Normal); Ketones,Urine Negative (Negative); Leukocyte Esterase,Urine Negative (Negative); Nitrite,Urine Negative (Negative); Protein,Urine Negative (Neg-Trace); Specific Gravity,Urine 1.013 (1.010-1.025); Urobilinogen,Urine Normal (Normal)
[2019-06-04] MEDS ORDERED: Naloxone 0.4 MG/ML INJ IVP PRN (21:09)
[2019-06-04] MEDS ORDERED: Ondansetron 4 MG/2 ML VIAL IVP PRN (21:09)
[2019-06-04] MEDS ORDERED: Ketorolac 15 MG/ML VIAL IVP PRN (21:36)
[2019-06-04 22:27] LABS: Amphetamine Screen,Urine Negative ng/mL (Cutoff=1000); Barbiturate Screen,Urine Negative ng/mL (Cutoff=200); Benzodiazepines Screen,Urine Negative ng/mL (Cutoff=200); Cannabinoid Screen,Urine Positive ng/mL (Cutoff = 50); Cocaine Screen,Urine Positive ng/mL (Cutoff= 300); Opiate Screen,Urine Negative ng/mL (Cutoff=300); Phencyclidine Screen,Urine Negative ng/mL (Cutoff=25)
[2019-06-04] MEDS: Ringers Solution, Lactated 1,000 ML IVC SCH (23:25)
[2019-06-05 01:59] LABS: Basophils % 0.5 %; Eosinophils # 0.4 K/mcL (0.0-0.6); Eosinophils % 5.9 %; Hematocrit 41.7 % (35.3-44.9); Hemoglobin 12.7 g/dL (11.5-15.4); Immature Granulocytes % 0.5 % (0-4); Lymphocytes % 45.4 %; Mean Corpuscular HGB Conc 30.5 g/dL (31.6-35.5); Mean Corpuscular Volume 88.5 fL (83.0-100.0); Mean Platelet Volume 11.4 fL (9.4-12.4); Monocytes # 0.5 K/mcL (0.0-1.3); Monocytes % 7.2 %; Neutrophils # 2.7 K/mcL (1.6-8.9); Platelet Count 153 K/mcL (140-400); Red Blood Count 4.71 M/mcL (3.82-4.97); Red Cell Distribution Width 17.1 % (11.5-14.5); Segmented Neutrophils % 40.5 %; White Blood Count 6.6 K/mcL (4.3-11.1)
[2019-06-05 02:28] LABS: Platelet Estimate Normal (Normal); Reactive Lymphocytes Present (Not Present)
[2019-06-05 03:05] LABS: Alanine Aminotransferase 36 Units/L (7-52); Albumin/Globulin Ratio 0.8 (1.1-2.2); Alkaline Phosphatase 80 Units/L (34-104); Aspartate Amino Transferase 42 Units/L (13-39); BUN/Creatinine Ratio 8 (6-26); Bilirubin,Total 0.2 mg/dL (0.3-1.0); Blood Urea Nitrogen 8 mg/dL (6-20); Calcium 8.6 mg/dL (8.6-10.3); Carbon Dioxide 29 mEq/L (23-29); Chloride 106 mEq/L (98-107); Globulin 3.9 g/dL (2.4-3.5); Glucose 118 mg/dL (70-105); Osmolality,Calculated 291 (280-300); Potassium 4.2 mEq/L (3.5-5.1); Sodium 141 mEq/L (136-145); Total Protein 6.9 g/dL (6.4-8.9); eGFR For African Americans > 60 (> 60); eGFR For Non-African Americans 59 (> 60)
[2019-06-05] MEDS: Micafungin 100 MG in 0.9 % Sodium Chloride Mini Bag 100 ML IVPB SCH (11:30)
[2019-06-05] MEDS: Ketorolac 30 MG/ML VIAL IVP PRN (19:43)
[2019-06-05] MEDS: Ringers Solution, Lactated 1,000 ML IVC SCH (22:52)
[2019-06-05] MEDS ORDERED: Ringers Solution, Lactated 1,000 ML IVC SCH (23:00)
[2019-06-05] MEDS ORDERED: *HR* LORazepam 0.5 MG TABLET PO PRN (23:31)
[2019-06-06] MEDS ORDERED: *HR* Heparin 5,000 UNIT/ML VIAL SQ SCH (06:00)
[2019-06-06] MEDS: Ketorolac 30 MG/ML VIAL IVP PRN (09:01)
[2019-06-06] MEDS: Micafungin 100 MG in 0.9 % Sodium Chloride Mini Bag 100 ML IVPB SCH (09:46)
[2019-06-06] MEDS ORDERED: Fluconazole 100 MG TABLET PO ONE (09:54)
[2019-06-06 10:19] VITALS: BP 96/53
[2019-06-07] MEDS ORDERED: Fluconazole 100 MG TABLET PO SCH (09:00)
== END 2019-06-06 12:45 | disposition home or self-care (01) | DRG 724 ==
LOC: EMEROOARM 19:08 → 3ANU 21:20 → INTOOBSV 21:20 → 3ANU 22:27
PROVIDERS: ADMIT Family Medicine; ATTEND Family Medicine